=== PATIENT | male | born 1980 | race Caucasian/White ===

== ENCOUNTER 2020-03-17 09:02 | Emergency (ER) | payer OTHER, SELFPAY ==
[2020-03-17 09:02] VITALS: BP 152/102; PULSE 98; RESP 16; TEMP 36.7; O2SAT 97; BMI 25.8
--- NOTE | 2020-03-17 09:20 | RAD_ITS ---
STUDY: X-RAY - RIGHT KNEE REASON FOR EXAM: Male, 39 years old. KNEE PAIN AND LROM, UNABLE TO BEAR WEIGHT S/P FALL LAST NIGHT -- HX OF 2 SURGERIES- ACL REPAIR AND MCL REPAIR TECHNIQUE: 4 view(s) of the knee. COMPARISON: None. FINDINGS: Normal visualized distal femur. Normal visualized proximal tibia and fibula. Normal proximal tibiofibular articulation. There is evidence of prior anterior cruciate ligament repair. Normal medial femorotibial compartment. Normal lateral femorotibial compartment. Normal patellofemoral articulation. The soft tissue structures are unremarkable. RAD/Knee 4 or More Views IMPRESSION: Evidence of prior anterior cruciate ligament repair. Electronically Signed: Naseem Morocho, at 9:39 EDT , Service support ,
--- NOTE | 2020-03-17 09:29 | ED.VISSUMM ---
- ER Visit Summary Date of Service: 03/17/20 Chief Complaint: [Right knee injury] History of Present Illness: The patient is a 39 M [presents the emergency department with complaint of injury to the right knee that occurred yesterday while at work. Patient states that he tripped over a pallet and landed on the lateral aspect of his knee but he has a lot more pain diffusely about the knee and especially to the medial aspect this morning. This morning patient unable to bear weight secondary to pain. Patient has had prior surgeries x2 on that knee for an ACL repair. Patient does not want to file this under workman's comp. He denies any other injuries.] Physical Examination: [HEENT-PERRLA, EOMI. Cranial nerves II through XII grossly intact. TMs clear. Mucous membranes moist. No adenopathy. Cardiovascular-regular rate and rhythm without murmur or ectopy Lungs-clear to auscultation, chest wall stable without crepitus or subcu emphysema Abdomen-normoactive bowel sounds, soft, nontender, no rebound or rigidity, no peritoneal signs. Extremities-intact ?4, normal range of motion, normal pulses. Right knee-patient has no evidence of joint effusion. There is no ecchymosis or bruising. There is mild soft tissue swelling to the medial lateral aspect of the knee. He has limited range of motion flexion extension secondary to pain. He does not tolerate ligamentous exam. He is neurovascular intact distally.] Test Results: [X-rays of the right knee were obtained which showed evidence of prior ACL repair however no fractures or dislocations noted.] Emergency Department Course and Treatment: [She was given a knee immobilizer. Patient states he already has crutches and does not want them.] Treatment Plan: [She will be given a referral to orthopedics as well as a prescription for Naprosyn and a few [place] for severe pain. Patient instructed to ice and elevate the extremity. Patient understands he may require further imaging such as possibly MRI to evaluate further if symptoms do not improve.] Disposition: [Discharged home in stable condition] Impression: [Right knee contusion/sprain-possible internal derangement] This note was generated with [employer] dictation software. It may contain incorrect words, spelling, and punctuation that were not noted in review of the chart prior to signing
--- NOTE | 2020-03-17 09:43 | ED.DEP ---
ED Disposition - Plan for ED Patient: Instructions: ED Meniscal Injury Knee Poss, ED Sprain Knee Prescriptions: Naproxen [Naprosyn] 500 mg PO BID PRN #20 tab Prescription Printed Hydrocodone Bitart/Apap 5-325 [[place] 5MG-325MG] 1 tab PO Q4H PRN PRN 2 Days #10 tab PRN Reason: Pain Prescription Printed Referrals: Camden Farley MD [STAFF PHYSICIAN] - 3-5 Days
== END 2020-03-17 10:17 | disposition home or self-care (01) ==
PROVIDERS: Emergency Provider Emergency Medicine
DX: S83.91XA Sprain of unspecified site of right knee, initial encounter (principal); S80.01XA Contusion of right knee, initial encounter; W18.09XA Striking against other object with subsequent fall, initial encounter; Y93.9 Activity, unspecified; Y92.9 Unspecified place or not applicable; Y99.0 Civilian activity done for income or pay
CPT/HCPCS: 73564; 99283

== ENCOUNTER → 2020-04-07 10:46 | Outpatient (CLI) | payer OTHER, SELFPAY ==
[2020-03-17 09:02] VITALS: BMI 25.8
== END ==
PROVIDERS: Referring Provider Orthopaedic Surgery; Visit Provider Orthopaedic Surgery
DX: Z11.59 Encounter for screening for other viral diseases (principal)
CPT/HCPCS: 87635; 94799; U0003

== ENCOUNTER 2021-11-30 16:05 | Emergency (ER) | payer OTHER, SELFPAY ==
[2021-11-30 16:05] VITALS: BP 157/100; PULSE 98; RESP 16; TEMP 36.8; O2SAT 97; BMI 25.8
--- NOTE | 2021-11-30 16:28 | EX.ED.UPPERE ---
HPI History of Present Illness Chief Complaint: Upper Extremity Injury Narrative Narrative: Patient presents with injury to his right hand that he sustained approximately 3 hours ago. He is right-hand dominant. He has had previous surgeries and plate/screws inserted from fracture of his right hand from across injury in high school. 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 He now has swelling across the dorsum of his right hand. Pain is worse with movement of his fingers and when pressing down on the area that has swollen up. He denies other injuries. PFSH PFS Home Medications NK 11/30/21 [History Last Taken Unknown] Allergy/AdvReac Type Severity Reaction Status Date / Time No Known Allergies Allergy Verified 03/17/20 09:04 Surgical History H/O knee surgery Social History Smoking Status: Current every day smoker tobacco type: smokeless tobacco ROS ROS ED ROS Narrative Constitutional: No fever, no chills. HEENT: No sore throat. No neck pain. No loss of vision. No rhinorrhea. Cardiovascular: No chest pain. No palpitations. No pedal edema. Respiratory: No cough, no shortness of breath. Abdominal: No abdominal pain. No nausea. No vomiting. Genitourinary: No dysuria. No hematuria. Musculoskeletal: No myalgias. Right hand pain, back of right hand, with noted swelling. Worse with movement of his fingers now. Neurologic: No headaches. No dizziness. No lightheadedness. Skin: No rash. No change in color. Psychiatric: No depression. No anxiety. EXAM Physical Exam Narrative Exam Narrative: Afebrile. Vital signs noted. HEENT: Normocephalic. Atraumatic. PERRL, EOMI. Neck soft and supple. No point tenderness or step off. Cardiovascular: Regular rate and rhythm. No murmurs, rubs, or gallops appreciated. Respiratory: No tachypnea. Lungs clear to auscultation bilaterally. Gastrointestinal: Abdomen soft, nontender, with normoactive bowel sounds. No rebound or guarding. Neurological: Awake. Alert. Nonfocal, nonlateralizing. Skin: No rash. Normal color. No pallor. Musculoskeletal: No pedal edema. Positive swelling noted on dorsum of right hand along the second and third metacarpals/midshaft area. Neurovascularly intact distally with full range of motion of fingers and good capillary refill. Abduction and abduction of fingers intact. Able to oppose thumb. Full range of motion of wrist without pain. Palpable radial pulse. Const Vital Signs: 11/30/21 16:05 Temperature 98.3 F Temperature Source Temporal Pulse Rate 98 Respiratory Rate 16 Blood Pressure 157/100 H Blood Pressure Mean 119 Pulse Ox 97 Oxygen Delivery Method Room Air MDM MDM MDM Narrative Medical decision making narrative: Patient declined analgesics here. He had already been given an ice pack. X-rays were obtained of the right hand in 3 views. My interpretation of the x-ray shows postsurgical changes, but no acute fracture. Radiologist confirms this. He was referred to the [facility]. He will be given off work today, the day of his injury, but states he is already off work for the day. He was told to follow-up with the [facility] in 3 to 5 days. He will continue ice and elevation at home along with [id number] analgesics as needed. I feel he can be discharged safely home with follow-up. Return instructions were reviewed. He was given a note to return to work with limited use of his right hand and right arm for the next week or until cleared by the [facility]. Disposition is discharged home in stable condition. Discharge Plan Triage Chief Complaint: Upper Extremity Injury ED Provider: Nasim Gill Dx/Rx/DC Orders Clinical Impression: Contusion of right hand Instructions: ED Hand Contusion Prescriptions: No Action NK RF: 0 Stand Alone Forms: Work Status Form Primary Care Provider: Care Physician,No Primary Referrals: Care Physician,No Primary [Primary Care Provider] - [facility] [NON-STAFF] - 3-5 Days Disposition Disposition: Home, Self Care
--- NOTE | 2021-11-30 16:32 | RAD_ITS ---
History: Pain, trauma related Right hand 3 views: Findings: Surgical plates in place along the fourth and fifth metacarpal shafts. No acute fracture or subluxation. Joint spaces and soft tissues are normal. IMPRESSION: No acute bone or joint abnormality. at 1649 Reported and signed by: Tobias La MD Electronically Signed: Tobias La MD at 16:48 EDT , RAD/Hand Min 3 Views
== END 2021-11-30 17:29 | disposition home or self-care (01) ==
PROVIDERS: Emergency Provider Emergency Medicine; Visit Provider Emergency Medicine
DX: S60.221A Contusion of right hand, initial encounter (principal); F17.220 Nicotine dependence, chewing tobacco, uncomplicated; X58.XXXA Exposure to other specified factors, initial encounter
CPT/HCPCS: 73130; 99282

== ENCOUNTER → 2023-02-20 | Outpatient (CLI) | payer OTHER, SELFPAY | END | disposition home or self-care (01) | LOC: MFPLAB 10:17 | PROVIDERS: PCP Family Medicine; Visit Provider Family Medicine | DX: M54.9 Dorsalgia, unspecified (principal) | CPT/HCPCS: 36415; 85379 ==

== ENCOUNTER 2023-07-12 22:40 | Observation (INO) | payer OTHER, SELFPAY ==
[2023-07-12 22:41] VITALS: BP 138/87; PULSE 105; RESP 16; TEMP 36.6; O2SAT 97
[2023-07-12 22:57] VITALS: BMI 24.0
--- NOTE | 2023-07-12 23:06 | EX.ED.DYSGE1 ---
HPI History of Present Illness Chief Complaint: Seizure Informant: patient Onset/Context/Timing Onset: Hours (1) Context: Sudden Onset Timing: Intermittent and Lasts (1 to 1-1/2 minutes) Quality: [place] Location: Generalized Worsened by: Alcohol withdrawal Relieved by: Nothing Narrative Narrative: Patient presents with a seizure that occurred today. states that occurred approximately 1 hour prior to arrival. states that patient had a generalized [place] mall seizure. states the patient normally drinks alcohol daily but has not had any alcohol since last night. Patient admits to biting his tongue. Patient denies any incontinence of urine or stool. Patient denies any headaches. Patient denies any chest pain or shortness of breath. Patient denies any fevers or chills. PFSH PFSH Medical History no medical history no medical history Home Medications NK 07/12/23 [History Last Taken Unknown] Allergy/AdvReac Type Severity Reaction Status Date / Time No Known Allergies Allergy Verified 07/12/23 22:44 Surgical History H/O knee surgery Social History Smoking Status: Current every day smoker tobacco type: smokeless tobacco alcohol intake: current alcohol intake frequency: 3 or more drinks per day ROS ROS ED Constitutional Constitutional ED: Denies chills or fever(s) Eyes Eyes: Denies blurry vision or change in vision ENT ENT ED: Denies rhinorrhea or sore throat Cardiovascular Cardiovascular: Denies chest pain or palpitations Respiratory/Chest Respiratory/Chest: Denies cough or dyspnea Gastrointestinal Gastrointestinal: Denies nausea or vomiting Genitourinary Genitourinary ED: Denies dysuria or hematuria Musculoskeletal Musculoskeletal: Denies back pain or neck pain Integumentary Denies abscess or rash Neurologic Neurologic: Denies headache(s) or weakness Allergic/Immunologic Allergic/Immunologic ED: Denies mouth swelling or urticaria EXAM Physical Exam Const Vital Signs: 07/12/23 22:41 07/13/23 01:19 Temperature 98 F Temperature Source Temporal Pulse Rate 105 H 61 Respiratory Rate 16 18 Blood Pressure 138/87 H Blood Pressure Mean 104 Pulse Ox 97 98 Oxygen Delivery Method Room Air Room Air Positive well nourished and well developed General Appearance ED: well developed and NAD HEENT Reports moist mucous membranes Neck supple and no JVD Resp normal respiratory effort and clear to auscultation bilaterally Cardio regular rhythm Rate: tachycardic GI non-tender and non-distended Palpation: soft Extremity normal to inspection General Extremety ED: Negative for edema or tenderness General Extremity: Negative for edema Neuro oriented x3, CN's II-XII intact bilaterally and no sensory deficits noted Sensorium / Orientation: alert Motor Exam: strength 5/5 throughout Psych mental status grossly normal Skin no wounds and skin turgor normal MDM MDM MDM Narrative Medical decision making narrative: Differential diagnosis includes alcohol withdrawal seizure, electrolyte abnormality, intracranial bleeding, cardiac dysrhythmia, and cardiac ischemia. CT scan of the brain will be obtained to assess for intracranial bleeding. EKG will be obtained to assess for cardiac dysrhythmia and cardiac ischemia. CBC will be obtained to assess for leukocytosis and anemia. Comprehensive metabolic profile will be obtained to assess for hepatic function, renal function, and electrolyte abnormality. Lipase will be obtained to assess for pancreatitis. High-sensitivity troponin will be obtained to assess for cardiac ischemia. Total CPK will be obtained to assess for rhabdomyolysis. Lab Data Attestation: I reviewed the patient's lab results. Lab results narrative: CBC was reviewed and was essentially within normal limits. PT with INR and PTT were reviewed. Pro time was 15.1 and INR is 1.2. PTT was normal at 27.3. Comprehensive metabolic profile was reviewed. Sodium was 130 and potassium was 3.0. Chloride was 94. CO2 was 19 and anion gap is slightly elevated at 17. Total bilirubin was slightly elevated at 1.7, AST was slightly elevated at 184 and ALT was 158. Alkaline phosphatase was normal at 100. High-sensitivity troponin was reviewed and was normal at 4. 2-hour repeat high-sensitivity troponin was reviewed and was normal at 6. Lipase was reviewed and was normal at 36. Labs: Laboratory Results - last 24 hr 07/12/23 07/12/23 07/13/23 23:11 23:57 02:27 WBC 5.5 RBC 4.49 L Hgb 14.9 Hct 43.3 MCV 96.4 H MCH 33.2 H MCHC 34.4 RDW Std Deviation 41.2 RDW Coeff of Howard 11.8 Plt Count 123 L MPV 9.6 Immature Gran % (Auto) 1.100 H Neut % (Auto) 69.8 Lymph % (Auto) 14.4 L [place] % (Auto) 11.8 H Eos % (Auto) 0.9 Baso % (Auto) 2.0 H Absolute Neuts (auto) 3.8 Absolute Lymphs (auto) 0.79 L Nucleated RBC % 0 PT 15.1 H INR 1.2 APTT 27.3 Sodium 130 L Potassium 3.0 L Chloride 94 L Carbon Dioxide 19.0 L Anion Gap 17 H BUN 8 Creatinine 1.14 Estim Creat Clear Calc 81.67 Est GFR (MDRD) Af Amer 90 Est GFR (MDRD) Non-Af 75 BUN/Creatinine Ratio 7.0 L Glucose 205 H Calcium 9.8 Total Bilirubin 1.70 H AST 184 H ALT 158 H Alkaline Phosphatase 100 Troponin I High Sens 4 6 Total Protein 8.4 H Albumin 4.0 Globulin 4.4 H Albumin/Globulin Ratio 0.9 Lipase 36 Radiography Diagnostic Testing: Clinical Impression(s) from Imaging Studies Brain CT 07/12/23 23:46 IMPRESSION: Mild microangiopathic disease, otherwise no acute intracranial process. Sequela of chronic sinusitis as described. Electronically Signed: Nadege Zavaleta MD at 0:38 EST , CT scan of the brain was obtained. There is no acute intracranial abnormality. This was interpreted by the radiologist and was also independently reviewed by myself. EKG Initial EKG: Attestation: I personally reviewed and interpreted this EKG as follows: Interpretation: Sinus Rhythm and No Acute Injury Pattern Comments: EKG was obtained. On my independent interpretation, it shows normal sinus rhythm with a rate of 61. MO interval was normal at 166 ms. QRS interval was normal at 88 ms. QTc interval was slightly prolonged at 485 ms. Raccoon was normal at 9. There are no acute ST or T wave changes noted. Prior EKG tracings: not available for review Prior: No Prior Treatment and Re-Evaluation :: Seizure precautions were maintained. Patient was given IV fluids. Patient was given a dose of phenobarbital here. Patient was given a dose of potassium. Patient was also given Tylenol for his headache. Patient was feeling somewhat better on reevaluation. Patient requested to be admitted for alcohol detox. Case was discussed with the hospitalist. He will admit the patient to his service. Urine tox screen and serum alcohol level were added on. Patient and family understood and were agreeable with the plan. All questions were answered. Discharge Plan Triage Chief Complaint: Seizure ED Provider: Ashkan Chery Dx/Rx/DC Orders Clinical Impression: Desire for detoxification, Alcohol withdrawal seizure Prescriptions: No Action NK Primary Care Provider: Stan Reynoso Referrals: Stan Reynoso MD [Primary Care Provider] - Disposition Disposition: Acute Care Hospital [facility]
--- NOTE | 2023-07-12 23:46 | CT_ITS ---
STUDY: CT BRAIN WITHOUT CONTRAST REASON FOR EXAM: Male, 42 years old. Seizure RADIATION DOSAGE (If Supplied By Facility): CTDIvol = ( 44.99 ) mGy, DLP = ( 779.24 ) mGycm TECHNIQUE: Transaxial CT imaging of the brain was performed without administration of intravenous contrast material. Individualized dose optimization techniques were used for this CT. COMPARISON: No relevant priors. FINDINGS: Normal soft tissue structures. Normal calvarium. There is mild cerebral atrophy with widening of the extra-axial spaces and ventricular dilatation. There are areas of decreased attenuation within the white matter tracts of the supratentorial brain, consistent with mild microvascular disease changes. Normal basal ganglia and thalami. Normal brainstem. Normal cerebellum. There is no intracranial hemorrhage. There are no findings of an acute ischemic infarction. Mucosal thickening involving the left frontal sinus, bilateral maxillary, ethmoids and sphenoid sinus consistent with chronic pansinusitis. Bilateral mastoid air cells are clear. CT/Brain/Head without Contrast IMPRESSION: Mild microangiopathic disease, otherwise no acute intracranial process. Sequela of chronic sinusitis as described. Electronically Signed: Nadege Zavaleta MD at 0:38 EST ,
--- NOTE | 2023-07-12 23:47 | EKG12_ITS ---
Test Reason : DYSRHYTHMIA Blood Pressure : / mmHG Vent. Rate : 061 BPM Atrial Rate : 061 BPM P-R Int : 166 ms QRS Dur : 088 ms QT Int : 482 ms P-R-T Axes : 039 009 047 degrees QTc Int : 485 ms Normal sinus rhythm Prolonged QT Abnormal ECG Confirmed by FABBY ZAZUETA, MARLENA ([id number]), medical transcription editor LORENZO JARRELL ([id number]) on 07/23/2023 10:01:05 AM Referred By: MARY Confirmed By:MARLENA SEQUEIRA MD
[2023-07-12] MEDS: 0.9% Normal Saline (1000mL) 1,000 ML 1000 ML IV (23:55)
[2023-07-13] VITALS (15 sets, daily range): BP systolic 106–151; BP diastolic 82–95; PULSE 59–86; RESP 12–18; TEMP 36.5–37.2; O2SAT 94–100; BMI 24.5
[2023-07-13 00:04] LABS: Absolute Lymphocyte Count 0.79 X10^3/uL (0.83-4.51); Absolute Neutrophil Count 3.8 X10^3/uL (2.0-7.7); Basophil# 0.11 X10^3/uL; Eosinophil# 0.05 X10^3/uL; Eosinophils% 0.9 % (0-5); Hematocrit 43.3 % (40-54); Hemoglobin 14.9 g/dL (13.0-16.5); Lymphocyte # 0.79 X10^3/ul (0.83-4.51); Lymphocyte % 14.4 % (19-41); Mean Corp Hgb Conc 34.4 g/dL (32-36); Mean Corpuscular Hgb 33.2 pg (27.0-32.0); Mean Corpuscular Volume 96.4 fL (80-94); Mean Platelet Vol. 9.6 fl (6.2-12.0); Monocyte# 0.65 X10^3/uL; Monocyte% 11.8 % (0-10); NRBC Flagged by Analyzer 0 % (0-5); Neutrophil # 3.83 X10^3/uL (2.7-7.7); Neutrophil % 69.8 % (47-70); Platelet Count 123 K/mm3 (150-450); RBC Distribution Width CV 11.8 % (11.6-14.6); RBC Distribution Width SD 41.2 fl (35.1-43.9); Red Blood Count 4.49 M/mm3 (4.6-6.2); White Blood Count 5.5 K/mm3 (4.4-11.0)
[2023-07-13 00:13] LABS: International Normalized Ratio 1.2; Partial Thromboplast Time 27.3 Seconds (24.1-36.2); Prothrombin Time (Protime)PT. 15.1 SECONDS (11.7-14.9)
[2023-07-13 00:36] LABS: ALB/GLOB Ratio 0.9 RATIO (0.9-2.4); AST(SGOT) 184 U/L (15-37); Alanine Aminotransfer ALT/SGPT 158 U/L (16-61); Alkaline Phosphatase 100 U/L (45-117); Anion Gap 17 (5-15); BUN 8 mg/dL (7-18); Calcium,Total 9.8 mg/dL (8.5-10.1); Chloride 94 mmol/L (98-107); Creatinine, Serum 1.14 mg/dL (0.70-1.30); EST Glomerular Filtration Rate 75 mL/min (>60); Est Glom Filt Rate - Afr Amer 90 mL/min (>60); Estimated Creatinine Clearance 81.67 ml/min; Globulin 4.4 g/dL (2.2-4.2); Glucose 205 mg/dL (74-106); Lipase 36 U/L (13-75); Protein, Total 8.4 g/dL (6.4-8.2); Sodium Level 130 mmol/L (136-145); Troponin-I HS (w/2H Reflex) 4 pg/mL (3.0-78.0)
[2023-07-13] MEDS: Acetaminophen 500 MG Tablet 1000 MG PO (01:48)
[2023-07-13 02:16] LABS: Reflex Troponin-HS? (from REC) Y
[2023-07-13] MEDS: Potassium Chloride Oral Tablet 20 MEQ 40 MEQ PO ×3 (02:18→12:12)
[2023-07-13] MEDS: Phenobarbital 32.4 MG Tablet PO (02:43)
[2023-07-13 02:50] LABS: Troponin-I HS 6 pg/mL (3.0-78.0)
--- NOTE | 2023-07-13 03:02 | PCM.HP.STD ---
HPI - General General Date of Admission: 07/13/23 Date of Service: 07/13/23 Chief Complaint: Alcohol withdrawal seizure HPI Narrative JEANNETTE MCKEON, is a 42 M with a past medical history of smokeless tobacco abuse, history of knee surgery and chronic alcohol abuse who presents to [facility] ER complaining of grand mal seizure. Mr. Mckeon reports symptoms began approximately 1 hour prior to admission with a sudden onset of seizure activity that lasted 60 to 90 seconds. His explained to the ER staff that he normally drinks alcohol daily but has not had any since last night. He admits to tongue lacerations but denies incontinence of bowel or bladder. He denies associated headache, fever, chills, nausea, vomiting, chest pain or shortness of breath - but he does admit to depression with anxiety and he does have a generalized tremor with domingo cheeks due to chronically dilated capillaries. He admits to chronically drinking 6-8 beers per day before he loses count and he denies a history of alcohol withdrawal seizures or DTs. 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 In the ER he was diagnosed with acute alcohol withdrawal causing grand mal seizure in the setting of chronic alcohol abuse complicated by laboratory evidence of hyperbilirubinemia with transaminitis due to alcoholic hepatitis with a total bilirubin of 1.7 mg/dL present on admission with an ALT of 158 and an AST of 184 plus hypokalemia with a potassium of 3 mmol/L present on admission and he was then admitted to the ICU under observation status for ongoing care for a stay that is expected to be less than 48 hours. [facility] Medical History no medical history Home Medications NK 07/12/23 [History Last Taken Unknown] Allergy/AdvReac Type Severity Reaction Status Date / Time No Known Allergies Allergy Verified 07/12/23 22:44 Surgical History H/O knee surgery Social History Smoking Status: Current every day smoker tobacco type: smokeless tobacco alcohol intake: current alcohol intake frequency: 3 or more drinks per day ROS ROS Narrative Review of systems: Constitutional: Patient denies fever or chills Eyes: Patient denies visual changes ENT: Patient denies runny nose or sore throat Cardiovascular: Patient denies chest pain or palpitations Respiratory: Patient denies cough or shortness of breath Gastrointestinal: Patient denies nausea or vomiting Genitourinary: Patient denies dysuria or hematuria Musculoskeletal: Patient denies back pain or neck pain Integumentary: Patient denies abscess or rash Neurologic: Patient has a generalized tremor but he denies headache or focal neurologic deficits Hematologic: Denies easy bleeding or easy bruising Allergic: Patient denies mouth swelling or urticaria 14 point review of systems otherwise negative except for positives noted above in HPI. Vital Signs Vital Signs Vital Signs: 07/12/23 22:41 07/13/23 01:19 Temperature 98 F Temperature Source Temporal Pulse Rate 105 H 61 Respiratory Rate 16 18 Blood Pressure 138/87 H Blood Pressure Mean 104 Pulse Ox 97 98 Oxygen Delivery Method Room Air Room Air Weight Weight: 158 lb 8.198 oz Body Mass Index (BMI) 24.0 Physical Exam Const alert, oriented x3 and average body habitus General Appearance: cooperative HEENT normocephalic, head/scalp atraumatic, hearing grossly normal bilaterally and moist oral mucous membranes HEENT Narrative: Patient is noted to have tongue lacerations. Eyes PERRL and EOMs intact bilaterally Eyes Narrative: Conjunctive a are injected. Neck no lymphadenopathy, supple, no JVD and no carotid bruits Resp normal respiratory effort, no retractions, no use of accessory muscles and clear to auscultation bilaterally Cardio regular rate and regular rhythm GI normal to inspection, nondistended, normoactive bowel sounds, soft to palpation, non-tender and non-distended Extremity normal to inspection, full ROM and no clubbing, cyanosis or edema Skin Skin Narrative: Patient has no evidence of rash at this time. Neuro oriented x3, CN's II-XII intact bilaterally, moves all extremities and no focal motor deficits Neuro Narrative: Patient has a generalized tremor. Sensorium / Orientation: awake, alert, oriented to person, oriented to place and oriented to time Speech: speech normal Motor Exam: strength 5/5 throughout Psych Mood & Affect: depressed and anxious Results Medical Records Data Attestation: I reviewed the patient's medical records Lab / Micro Data Attestation: I reviewed the patient's lab results. 07/13/23 04:40 07/13/23 04:40 Labs: Laboratory Results - last 24 hr 07/12/23 23:11: Sodium 130 L, Potassium 3.0 L, Chloride 94 L, Carbon Dioxide 19.0 L, Anion Gap 17 H, BUN 8, Creatinine 1.14, Estim Creat Clear Calc 81.67, Est GFR (MDRD) Af Amer 90, Est GFR (MDRD) Non-Af 75, BUN/Creatinine Ratio 7.0 L, Glucose 205 H, Calcium 9.8, Total Bilirubin 1.70 H, AST 184 H, ALT 158 H, Alkaline Phosphatase 100, Troponin I High Sens 4, Total Protein 8.4 H, Albumin 4.0, Globulin 4.4 H, Albumin/Globulin Ratio 0.9, Lipase 36 07/12/23 23:57: WBC 5.5, RBC 4.49 L, Hgb 14.9, Hct 43.3, MCV 96.4 H, MCH 33.2 H, MCHC 34.4, RDW Std Deviation 41.2, RDW Coeff of Howard 11.8, Plt Count 123 L, MPV 9.6, Immature Gran % (Auto) 1.100 H, Neut % (Auto) 69.8, Lymph % (Auto) 14.4 L, Day % (Auto) 11.8 H, Eos % (Auto) 0.9, Baso % (Auto) 2.0 H, Absolute Neuts (auto) 3.8, Absolute Lymphs (auto) 0.79 L, Nucleated RBC % 0, PT 15.1 H, INR 1.2, APTT 27.3 07/13/23 02:27: Troponin I High Sens [address] 07/12/23 23:46 IMPRESSION: Mild microangiopathic disease, otherwise no acute intracranial process. Sequela of chronic sinusitis as described. Electronically Signed: Nadege Zavaleta MD at 0:38 EST , Assessment & Plan Assessment/Plan (1) Alcohol withdrawal seizure: QUALIFIERS: Complication of substance-induced condition: uncomplicated Qualified Code(s): F10.930 - Alcohol use, unspecified with withdrawal, uncomplicated; R56.9 - Unspecified convulsions (2) Alcoholic hepatitis without ascites: (3) Chronic alcohol abuse: (4) Hypokalemia: PLAN: Plan 1. Alcohol withdrawal seizure in the setting of chronic alcohol abuse - Admit to ICU under observation status under seizure precautions. Continue phenobarbital taper begun in the ER. Patient's moderate thrombocytopenia of 100 present on admission is likely due to marrow suppression related to alcohol. Alcohol cessation was very strongly encouraged. 2. Hyperbilirubinemia with total bilirubin of 1.7 mg/dL with elevated AST of 184 and elevated ALT of 158 present on admission due to alcoholic hepatitis complicating #1 - Serial labs Daily CMP's to ensure improvement. Avoid Tylenol and other potentially hepatotoxic agents. 3. Hypokalemia of 3 mmol/L present on admission - Give supplemental potassium and recheck level in the a.m. to ensure improvement. 4. Tobacco abuse - Tobacco cessation was strongly encouraged with nicotine gum offered to control cravings at patient request. 5. DVT prophylaxis - Lovenox 40 mg subcu daily. Total time: Approximately 45 minutes Charges/Coding Visit Charges OBSV E&M: 95389 Observ/hosp same date L1
[2023-07-13 04:03] LABS: Alcohol, Blood (Medical)-Serum < 3.0 mg/dL
[2023-07-13 04:05] LABS: Amphetamine Urine VISTA NEGATIVE (<1000 ng/mL); Barbiturate Urine VISTA NEGATIVE (< 200 ng/mL); Benzodiazepine Urine VISTA NEGATIVE (< 200 ng/mL); Cocaine Urine VISTA NEGATIVE (< 300 ng/mL); Ecstacy Urine VISTA NEGATIVE (< 500 ng/mL); Methadone Urine VISTA NEGATIVE (< 300 ng/mL); PCP Urine VISTA NEGATIVE (< 25 ng/mL); THC Urine VISTA NEGATIVE (< 50 ng/mL); Vista UDS pH Range 7
[2023-07-13 04:49] LABS: Hematocrit 38.6 % (40-54); Hemoglobin 13.4 g/dL (13.0-16.5); Mean Corp Hgb Conc 34.7 g/dL (32-36); Mean Corpuscular Volume 95.1 fL (80-94); Mean Platelet Vol. 9.3 fl (6.2-12.0); POSITIVE DIFFERENTIAL YES; POSITIVE MORPHOLOGY YES; Platelet Count 100 K/mm3 (150-450); RBC Distribution Width CV 11.7 % (11.6-14.6); RBC Distribution Width SD 41.2 fl (35.1-43.9); Red Blood Count 4.06 M/mm3 (4.6-6.2); White Blood Count 5.3 K/mm3 (4.4-11.0)
[2023-07-13] MEDS: 0.9% Saline Lock 10 ML Syringe IV (05:01)
[2023-07-13] MEDS: KCL 20MEQ in 0.9% NS 20 MEQ/1,000 ML IV.SOLN. 150 MEQ IV (05:01)
[2023-07-13] MEDS: Phenobarbital 32.4 MG Tablet 97.2 MG PO ×5 (05:01→19:58)
[2023-07-13] MEDS: Ondansetron 4 MG/2 ML Vial IV (05:01)
[2023-07-13 05:13] LABS: ALB/GLOB Ratio 0.8 RATIO (0.9-2.4); AST(SGOT) 146 U/L (15-37); Alanine Aminotransfer ALT/SGPT 137 U/L (16-61); Albumin, Serum 3.5 g/dL (3.2-5.0); Alkaline Phosphatase 83 U/L (45-117); Anion Gap 11 (5-15); BUN 6 mg/dL (7-18); BUN/Creat Ratio 6.9 RATIO (10-20); Calcium,Total 8.7 mg/dL (8.5-10.1); Chloride 97 mmol/L (98-107); Creatinine, Serum 0.87 mg/dL (0.70-1.30); EST Glomerular Filtration Rate 102 mL/min (>60); Est Glom Filt Rate - Afr Amer 123 mL/min (>60); Estimated Creatinine Clearance 103.41 ml/min; Globulin 4.3 g/dL (2.2-4.2); Glucose 123 mg/dL (74-106); Magnesium 1.9 mg/dL (1.6-2.6); Phosphorus 2.1 mg/dL (2.5-4.9); Potassium 3.2 mmol/L (3.5-5.1); Protein, Total 7.8 g/dL (6.4-8.2); Sodium Level 133 mmol/L (136-145); Thyroid Stim Hormone (TSH) 1.19 uIU/mL (0.358-3.74)
[2023-07-13 05:14] LABS: Differential Indicated MANUAL DIFF
[2023-07-13 05:17] LABS: Basophil 1 % (0-1); Eosinophil 1 % (0-5); Lymphocyte 10 % (19-41); Monocyte 6 % (0-10); Neutrophil-Segmented 82 % (47-70); Total Cells Counted 100 (MANUAL DIFF)
[2023-07-13 05:22] LABS: Absolute Lymphocyte Count 0.53 X10^3/uL (0.83-4.51); Absolute Neutrophil Count 4.3 X10^3/uL (2.0-7.7); Lymphocyte # 0.53 X10^3/ul (0.83-4.51); Neutrophil # 4.33 X10^3/uL (2.7-7.7)
[2023-07-13 05:29] LABS: Differential Comment SCANNED; Platelet Estimate ADEQUATE (ADEQ); Red Cell Morphology NORM C+C NORMAL (NORM C&C)
[2023-07-13] MEDS: Folic Acid 1 MG Tablet PO (08:05)
[2023-07-13] MEDS: Thiamine Hydrochloride 100 MG Tablet PO (08:05)
[2023-07-13] MEDS: Gabapentin 300 MG Capsule PO (08:17)
--- NOTE | 2023-07-13 08:54 | PCM.HOSP.N ---
Hospitalist Note Patient was seen and examined, he is alert and appropriate, he states he is nervous. Patient has never gone through alcohol detox before, he had contacted [facility] as an outpatient. Patient appears appropriate for transfer to [place] [id number], I do not feel he needs IV access at this time, his potassium slightly low will give him oral potassium. Patient will be seen by addiction director social service tomorrow.
[2023-07-13] MEDS: hydrOXYzine PAM 25 MG Capsule 50 MG PO (12:12)
--- NOTE | 2023-07-13 13:52 | NURSING ---
pt read and signed ramp contract. pt called to inform of ramp admit and not able to have visitors or phone calls while on program
[2023-07-13] MEDS: Ibuprofen 400 MG Tablet PO (20:09)
[2023-07-14] MEDS: Phenobarbital 32.4 MG Tablet 97.2 MG PO ×3 (00:28→07:22)
[2023-07-14 00:30] VITALS: BP 132/84; PULSE 68; RESP 16; TEMP 36.6; O2SAT 97
[2023-07-14 04:33] VITALS: BP 126/86; PULSE 62; RESP 16; TEMP 36.9; O2SAT 95
[2023-07-14 06:00] VITALS: BMI 24.4
[2023-07-14] MEDS: Folic Acid 1 MG Tablet PO (07:26)
[2023-07-14] MEDS: Thiamine Hydrochloride 100 MG Tablet PO (07:26)
[2023-07-14 08:36] VITALS: BP 119/80; PULSE 71; RESP 16; TEMP 36.6; O2SAT 99
--- NOTE | 2023-07-14 08:45 | PCM.PN.HOSP ---
Objective Data Objective Data Vital Signs: Vital Signs Temp Pulse Resp BP Pulse Ox O2 Del Method 36.6 C 71 16 119/80 99 Room Air 07/14/23 08:36 07/14/23 08:36 07/14/23 08:36 07/14/23 08:36 07/14/23 08:36 07/14/23 08:36 Oxygen Delivery Method Room Air Weight: 70.76 kg Body Mass Index (BMI) 24.4 Intake & Output: Intake and Output for Last 24 Hours 07/12/23 07/13/23 07/14/23 23:59 23:59 23:59 Intake Total 2595 / 2595 Output Total 1500 / 1500 Balance 1095 / 1095 Lab / Micro Data 07/13/23 04:40 07/13/23 04:40 Assessment & Plan Assessment/Plan (1) Alcohol withdrawal seizure: QUALIFIERS: Complication of substance-induced condition: uncomplicated Qualified Code(s): F10.930 - Alcohol use, unspecified with withdrawal, uncomplicated; R56.9 - Unspecified convulsions PLAN: Suspected alcohol withdrawal seizure. Through primary seizure disorder cannot be ruled out. Prior to arrival. Had not drank the day prior. No further events. No driving/operating heavy machinery for 6 months. May resume if seizure free and no longer abusing alcohol. Or may follow up with neurology to see if driving restrictions can be released sooner. Refer to case: [facility] Head CT showed no acute findings, though, mild microangiopathic disease. (2) Alcoholic hepatitis without ascites: PLAN: AST and ALT trending down. No baseline. Monitor. (3) Chronic alcohol abuse: PLAN: Thiamine and folate Phenobarbital taper. (4) Hypokalemia: PLAN: Replace Magnesium 1.9. PLAN: Plan Tobacco abuse - Tobacco cessation was strongly encouraged with nicotine gum offered to control cravings at patient request. DVT prophylaxis - Lovenox 40 mg subcu daily. Before had a chance to see the patient today, he left AGAINST MEDICAL ADVICE. I did not have the opportunity to speak with him directly nor ask many questions. He left even with the IV and the nurses had to track him down to get the IV out. Likely the patient is going to resume drinking again. In either case patient should not drive due to his alcohol consumption but also because of the risk withdrawal seizures whether or not that is primary alcohol withdrawal seizure or not.
--- NOTE | 2023-07-14 09:38 | NURSING ---
pt broke into totes and got dressed. pt left floor without signing ama papers. nursing attempting to get him to remove sl
--- NOTE | 2023-07-14 09:52 | NURSING ---
Nursing found pt and brought back to floor, iv removed and ama papers signed.
--- NOTE | 2023-07-14 10:00 | NURSING ---
Walked down to main desk to make sure patient was waiting for a ride. Noted he was walking outside. Noticed his here in the building and informed her where he was. Informed her that if he decides he wants help, he will need to come to ED. He is not able to come back straight up to the floor.
--- NOTE | 2023-07-14 10:14 | DCINST_ITS ---
Discharge Instructions Activity Discharge Activity: May Not Drive (Patient was to be seizure-free for 6 months or released to drive by neurologist assuming he is no longer drinking alcohol.) Follow Up Care Test Results: Test results from this visit will be discussed in further detail at your follow- up appointment, if applicable. Discharge Plan Admission Admit Date/Time: 07/13/23 03:22 Primary Reason for Your Visit: Alcohol withdrawal seizure Attending Provider: Ashkan Kerr Primary Care Provider: Stan Reynoso Consulting Providers: Bob Brewer; Jesus Odonnell Discharge Orders/Prescriptions Prescriptions: No Action NK Referrals / Follow Up: Stan Reynoso MD [Primary Care Provider] - Disposition Disposition (needs filled in before D/C Order can be placed): Against Medical Advice
--- NOTE | 2023-07-14 10:18 | PHA.DC.MR.R ---
Pharmacy [place] Med Reconciliation Pharmacy Service has performed discharge medication reconciliation for this patient. The patient's discharge medication list was reviewed for discrepancies and discrepancies were resolved. Medications at Discharge Home Medications NK 07/12/23
[2023-07-15 09:50] LABS: Pathologist Review Reviewed
== END 2023-07-14 09:45 | disposition left against medical advice (07) ==
LOC: ED 07-13 03:11 → ICU 07-13 06:57 → MS3 07-13 13:08
PROVIDERS: Admitting Provider Internal Medicine; Emergency Provider Emergency Medicine; PCP Family Medicine
DX: F10.288 Alcohol dependence with other alcohol-induced disorder (principal); G40.89 Other seizures; R25.1 Tremor, unspecified; S01.512A Laceration without foreign body of oral cavity, initial encounter; E87.6 Hypokalemia; K70.10 Alcoholic hepatitis without ascites; F17.290 Nicotine dependence, other tobacco product, uncomplicated; X58.XXXA Exposure to other specified factors, initial encounter
CPT/HCPCS: 70450; 80053; 80307; 82077; 83690; 83735; 84100; 84443; 84484; 85025; 85610; 85730; 93005; 96361; 96365; 96366; 96375; 99221; 99285; 99406; J7030; A4216; G0378; J2405

== ENCOUNTER 2023-07-14 14:18 | Emergency (ER) | payer OTHER, SELFPAY ==
[2023-07-14 14:20] VITALS: BP 156/101; PULSE 106; RESP 20; TEMP 36.3; O2SAT 100; BMI 24.7
--- NOTE | 2023-07-14 14:58 | EX.ED.SAOD ---
HPI History of Present Illness Chief Complaint: Substance Abuse Narrative Narrative: 42-year-old male presents with his because he wants to be readmitted to detox but in a different place. Of note, he was seen in the emergency department yesterday and was admitted. He had an alcohol withdrawal seizure. He was admitted to the ICU, and was discharged to the medical surgical floor. He signed out AGAINST MEDICAL ADVICE because he did not like some of the policies about not being able to wear his clothes or make phone calls. He presents with his because he wants to be admitted for detox at a different facility. She states that ideally she would like him detoxed at [facility] because she had a friend who detox there and was not allowed to leave. Additionally, when I discussed readmission for detox here, she states that she wants to take him to [facility]. He denies suicidal ideation or other symptoms. PFSH PFS Home Medications NK 07/12/23 [History Last Taken Unknown] Allergy/AdvReac Type Severity Reaction Status Date / Time No Known Allergies Allergy Verified 07/14/23 14:20 Surgical History H/O knee surgery Social History Smoking Status: Current every day smoker tobacco type: smokeless tobacco alcohol intake: current alcohol intake frequency: 3 or more drinks per day EXAM Physical Exam Narrative Exam Narrative: Afebrile. Vital signs noted. HEENT: Normocephalic. Atraumatic. PERRL, EOMI. Neck soft and supple. No point tenderness or step off. Cardiovascular: Regular rate and rhythm with intermittent tachycardia at 106. No murmurs, rubs, or gallops appreciated. Respiratory: No tachypnea. Lungs clear to auscultation bilaterally. Gastrointestinal: Abdomen soft, nontender, with normoactive bowel sounds. No rebound or guarding. Neurological: Awake. Alert. Nonfocal, nonlateralizing. Skin: No rash. Normal color. No pallor. No gooseflesh. Musculoskeletal: No pedal edema. Full range of motion extremities. Const Vital Signs: 07/14/23 14:20 Temperature 97.3 F L Temperature Source Temporal Pulse Rate 106 H Respiratory Rate 20 H Blood Pressure 156/101 H Blood Pressure Mean 119 Pulse Ox 100 Oxygen Delivery Method Room Air MDM MDM MDM Narrative Medical decision making narrative: I reviewed the patient's prior records. He was admitted here. I had a discussion with his regarding detox and that facilities are voluntary. When she mentioned [facility], that is a psychiatric facility, and I do not feel that he merits 72-hour admission for psychiatric reasons. I consulted social work to have a discussion with the patient and his regarding alcohol detox. Currently, I do not feel that any laboratory work is indicated here as he does not want admission here for alcohol detox. I discussed the patient with social work. hog worker stated that she spent approximately 30 minutes discussing options for the patient and reiterated that [facility] is a psychiatric facility. He does not meet any emergent psychiatric admissions currently. Social work also reported that upon return to the room after gathering information for the patient and his , they had eloped from the emergency department. Patient was in stable condition. Discharge Plan Triage Chief Complaint: Substance Abuse Other Complaint: ETOH Intox ED Provider: Nasim Gill Dx/Rx/DC Orders Clinical Impression: Desire for detoxification, Eloped from emergency department, Chronic alcohol abuse Prescriptions: No Action NK Primary Care Provider: Stan Reynoso Referrals: Stan Reynoso MD [Primary Care Provider] - Disposition Disposition: Elopement
--- NOTE | 2023-07-14 15:51 | CM.ED ---
Social Work SW introduced self and role to patient and family present in the room. Pt was in detox and left AMA. Pt returned to ED requesting detox elsewhere. Pt's reports, A friend told us it would be best for him to go to [facility] for detox because then he can't leave. SW explained [facility] is not a detox or substance abuse facility and is the state psychiatric facility. Pt's expresses the need for patient to be detained for detox. SW explained purpose of [facility] and criteria. SW is not able to admit patient to [facility], pt must be a danger to self or others psychiatrically, and have no insurance or be from the long-term. Additionally, SW explained that medical detox and substance use treatment cannot be mandated or hold people against their will, legally and due to the importance for individuals to be invested in their recovery for success. Pt's reports pt does not want detox at this facility. SW discussed and provided information of places that provide medical detox and longer term treatment. requesting additional options and SW agreed to get brochures and additional providers for their review. SW gathered 10+ fliers and brochures for treatment facilities and same day admission facilities. Returned to patient's room, patient and family left ED without further information. Oumou Zarate [employer], [employer]
--- NOTE | 2023-07-14 16:06 | ED.RN ---
PATIENT TO TALK WITH SOCIAL WORK. DENISE COLVIN WITNESSED PATIENT AND FAMILY LEAVING ROOM.
== END 2023-07-14 16:07 | disposition left against medical advice (07) ==
PROVIDERS: Emergency Provider Emergency Medicine; PCP Family Medicine; Visit Provider Emergency Medicine
DX: F10.10 Alcohol abuse, uncomplicated (principal); F17.220 Nicotine dependence, chewing tobacco, uncomplicated
CPT/HCPCS: 99282

== ENCOUNTER → 2023-09-18 | Outpatient (CLI) | payer OTHER, SELFPAY ==
--- OUTSIDE RECORDS SUMMARY | 2023-09-18 16:36 | XMS RPT_ITS | CCD ---
Author Name Unknown Address [address] [place] [address] Organization [facility] Care Team Providers Care [employer] Safety [employer] Health Specialist Name Role Phone Stan Moore MD Primary Care Provider STAN MOORE Primary Care Unavailable STAN MOORE Referring Unavailable EMERSON BARROS Attending Unavailable STAN MOORE Primary Care Unavailable STAN MOORE Referring Unavailable STAN MOORE Primary Care Unavailable STAN MOORE Primary Care Unavailable STAN MOORE Referring Unavailable STAN MOORE Primary Care Unavailable EMERSON BARROS Attending Unavailable Medications Completed/Discontinued Medications Medication Drug Class(es) Dates Sig (Normalized) Sig (Original) Ibuprofen (1 source) Nonsteroidal Anti-inflammatory Drug ibuprofen (MOTRIN ORAL) Take by mouth. 0 Active Problems Problem Classification Problem Date Documented Da te Episodic/Chronic Other liver diseases (1 source) Inflammatory liver disease, unspecified; Translations: [Hepatitis, unspecified] Onset: 08-13-2023 Chronic Other upper respiratory infections (1 source) Acute upper respiratory infection; Translations: [Acute upper respiratory infection, unspecified] Episodic Spondylosis; intervertebral disc disorders; other back problems (1 source) Acute low back pain; Translations: [Acute midline low back pain without sciatica] Episodic Results Test Name Value Interpretation Reference Range Facil ity Vital Signs Date Time Vital Sign Value Performing Clinician Faci lity 09-17-2022 10:29-0500 Body temperature 98.2 [degF] Regan Irizarry APRN.CNP Work Phone: [facility] 09-17-2022 10:29-0500 Body weight 78.2 kg Regan Irizarry APRN.CNP Work Phone: [facility] 09-17-2022 10:29-0500 Diastolic blood pressure 70 mm[Hg] Regan Irizarry COTTON DISPATCHER.FINANCIAL COMPLIANCE OFFICER Work Phone: [facility] 09-17-2022 10:29-0500 Heart rate 83 /min Regan Irizarry COTTON DISPATCHER.FINANCIAL COMPLIANCE OFFICER Work Phone: [facility] 09-17-2022 10:29-0500 Respiratory rate 18 /min Regan Irizarry COTTON DISPATCHER.FINANCIAL COMPLIANCE OFFICER Work Phone: [facility] 09-17-2022 10:29-0500 SaO2% (BldA) [Mass fraction] 98 % Regan Irizarry COTTON DISPATCHER.FINANCIAL COMPLIANCE OFFICER Work Phone: [facility] 09-17-2022 10:29-0500 Systolic blood pressure 130 mm[Hg] Regan Irizarry COTTON DISPATCHER.FINANCIAL COMPLIANCE OFFICER Work Phone: [facility] Encounters Encounter Date Encounter Type Care Provider Facility Start: 2023 End: 2023 ambulatory STAN MOORE Facility:[facility] Start: 09-02-2023 End: 09-02-2023 ambulatory STAN MOORE Facility:[facility] Start: 08-13-2023 End: 08-14-2023 ambulatory STAN MOORE Facility:[facility] Start: 10-12-2022 End: 10-13-2022 ambulatory STAN MOORE Facility:[facility] Start: 10-12-2022 Encounter for genera l adult medical examination without abnormal findings STAN MOORE [facility] Start: 09-17-2022 End: 09-17-2022 ambulatory STAN MOORE Facility:[facility] Start: 09-17-2022 End: 09-17-2022 Patient encounter procedure Regan King WINNIE.FINANCIAL COMPLIANCE OFFICER Work Phone: [facility] Plan of Treatment Date Care Activity Detail Author Start: 09-01-2022 DEPRESSION ASSESSMENT DEPRESSION ASS ESSMENT [facility] Start: 05-02-2022 Influenza vaccination INFLUENZA (#1) [facility] Start: 2015 LIPID SCREEN LIPID SCREEN [facility] Start: 1999 Urine microalbumin profile DTAP,TDAP ,TD (1 - Tdap) [facility] Start: 1998 HEPATITIS C SCREENING HEPATITIS C SC NATHAN [facility] Start: 1998 HIV SCREENING HIV SCREENING [facility] Start: 03-10-1981 COVID-19 VACCINE (#1) COVID-19 VACCI NE (#1) [facility] Start: 1980 HEPATITIS B (1 of 3 - 3-dose series) HEPATITIS B (1 of 3 - 3-dose series) [facility] Payers Date Payer Category Payer Private Health Insurance EHP AET NA EHP PLUS STAFF/NON STAFF / EHP Plus [facility] [id number] 2022-Present [address] [place] [address] PPO [id number] 2022 Unknown [id number] Social History Date Type Detail Facility [facility]: [facility] Start: 09-17-2022 Tobacco use and exposure Smoke less tobacco non-user [facility] Start: 09-17-2022 Alcohol intake Lifetime non-d wilfredo (finding) [facility] Start: 1980 [facility] Progress note 2023 Note Date & Type Note Facility 2023 Note HNO ID: [id number] Author: EMERSON BARROS PT Service: ? Author Type: Physical Therapist Type: Progress Notes Filed: 2023 09:50 Note Text: Episode Visit Count: 2 Therapist That Will Accept/Oversee The Plan Of Care: Emerson Barros PT. Start of Care Date: 09/02/23 Onset Date: 03/18/23 Patient Identified by Name and Date of : Yes REHABILITATION AND SPORTS THERAPY PHYSICAL THERAPY TREATMENT NOTE ASSESSMENT: Manjit Mckeon tolerated the session with decreased symptoms and expected muscle soreness. He demonstrated light difficulty with rowing form - cueing needed for decreased shrug and elbow position. The patient will continue to benefit from ongoing skilled physical therapy to progress toward set goals. PLAN FOR NEXT VISIT: Progress ther-ex as tolerated; shoulder extensions, prone swimmers. SUBJECTIVE: Patient reports the the mid back/L scapula has been steadily improving over the past week; states he can turn/rotate better; exercises have been good per patient. Low back has been better, bothers him continued with first time getting up - once moving he is pretty good. Pain: Pain Pain Level: 6 Pain Location: Thoracic Spine - Left, Neck - Left Description: Stabbing, Sharp Post Treatment Pain Post Treatment Pain Level: 0 Post Treatment Pain Location: Thoracic Spine - Left OBJECTIVE MEASURES WITH LEVEL OF FUNCTION: Tenderness and tissue restrictions in L Rhomboid. TREATMENT: Therapeutic Exercise: 1: Open the Book T/S Mobility: 1x12 each way. 2: Quadruped L Thread the Needle: 1x10. 3: Rhomboid Stretch: 2x30 . 4: *Doorway L Rhomboid STretch: 2x30 . 5: Thoracic Flexion Row: 1x10, 2 Plates Hoist. 6: Thoracic Rotational Row: 1x[address] e[address], 1Plate/1Round Hoist. 7: Thoracic Ext w/ ball against chair: 1x15. 8: *Horz ABD: 1x10, 9: *Rows: 1x10, GTB. Skilled Intervention: Patient was educated in proper exercise technique and purpose for exercises. Reviewed and educated patient on additions/changes for home exercise program as above (*). Skilled judgment was used in selection of appropriate interventions. Provided written instruction for home exercise program to facilitate proper performance and compliance. Correct performance of therapeutic exercises was facilitated with verbal, visual, and tactile cuing. Manual Therapy: 1: IaSTM to L Periscap area and Rhomboids: Push to tolerance. Skilled Intervention: Manual skills to improve joint mobility, ROM, and decrease pain. Utilized anatomy knowledge of the therapist, and assessment of patient's response to intervention. Billing Therapeutic Exercise Treatment Minutes: 32 Manual TherapyTreatment Minutes: 10 Skilled Treatment Time Minutes (timed and untimed codes): 42 Total Session Time (minutes): 42 Session Start Time : 09 Session Stop Time : 941 Emerson Barros PT [facility] Progress note 09-02-2023 Note Date & Type Note Facility 09-02-2023 Note HNO ID: [id number] Author: Emerson Barros PT Service: ? Author Type: Physical Therapist Type: Progress Notes Filed: 09/02/2023 1:28 PM Note Text: Episode Visit Count: 1 Therapist That Will Accept/Oversee The Plan Of Care: Emerson Papo, PT. Start of Care Date: 09/02/23 Onset Date: 03/18/23 Patient Identified by Name and Date of : Yes REHABILITATION AND SPORTS THERAPY PHYSICAL THERAPY EVALUATION PLAN OF CARE: Assessment: Manjit Mckeon presents with chief complaint of continuous L Mid-Back/Thoracic pain at the medial scapula border that can go to the R-side as well as intermittent B LBP that interferes with physical activities (Bed Mobility, Turning/Twisting, Lifting/Carrying, Occasional Rising from chair/initial walking.) .He presents with impairments in ADL's, flexibility, independence in exercise, overall function, posture, range of motion, soft tissue healing, strength, symptom management, and tissue tenderness. PROMIS? (Patient-Reported Outcomes Measurement Information System) scores were reviewed and self efficacy domain identified as a rehabilitation concern. Prognosis for therapy is Good due to: current objective clinical presentation, within-session changes, good support system/ coping skills .He will benefit from skilled therapy services to meet the goals established for this plan of care as noted below. Goals for Episode of Care: created on 09/02/23 through 10/07/23 [place] in home exercise program. Patient will decrease pain rating by 2 points to meet minimal clinical important difference for numeric pain rating scale. Patient will demonstrate increase in B scapular strength to 5/5 during manual muscle testing in order to improve function for home management tasks, leisure / recreation skills, and prior functional tasks. Perform bed mobility and twisting without pain. Restore pain-free cervical / thoracic / lumbar ROM to WNL to allow for improved ADLs/IADLs Patient will report complete return to prior level of function without limitations Patient Goals: Alleviate pain, improve function. Planned Interventions, Frequency, and Duration: Current Frequency: 1x/week Duration: 4 weeks Total Number of Visits Planned: 4 Planned Treatment Interventions: Therapeutic exercise (95320), Neuromuscular re-education (58112), Manual therapy (76470), Therapeutic activities (72980), Self-assisted management (54082), Patient/Family/Caregiver Education PLAN FOR NEXT VISIT: Progress scapular strength (Thoracic Flexion Row; Rotational Row; Rows; Shld Ext) AND thoracic mobility; DN AND IASTM as needed to L Rhomboids Patient demonstrates good understanding of plan of care and treatment. The above goals and plan of care were discussed and agreed upon by patient/family. SUBJECTIVE: Patient reports lonstanding back pain from sports/lifting and occupational demands; reports a couple months ago worsening mid-back and lower back pain; mid-back/L shoulder blade area feels like a stabbing pain and goes across the mid-back; states it feels like it is underneath the scapula; low back pain comes and goes, feels it almost on his tailbone,sharp/stabbing pain and worsens with prolonged sitting in one position and then limits rising from a chair and initial walking. Patient Goals: Alleviate pain, improve function. Functional Limitations: physical activities (Bed Mobility, Turning/Twisting, Lifting/Carrying, Occasional Rising from chair/initial walking.) Prior Level of Function: Independent without limitations Relevant History Past Relevant Medical Conditions: Per review with patient no issues were identified Employment: Unemployed Intake Information: Prescription present Previous Treatment: NSAIDs , Heat Red Flags Vertebral Fracture Clinical Reasoning: No identified risk factors Abdominal Aortic Aneurysm Clinical Reasoning: No identified risk factors. Cancer Clinical Reasoning: No identified risk factors. Infection Clinical Reasoning: No identified risk factors. Cauda Equina Syndrome Clinical Reasoning: No identified risk factors. Red Flags - Cervical Cancer Clinical Reasoning: No identified risk factors. Infection Clinical Reasoning: No identified risk factors. Pain: Pain Pain Level: 8 Pain Location: Thoracic Spine - Left Description: Stabbing, Sharp Frequency: Continuous Post Treatment Pain Post Treatment Pain Level: Better Post Treatment Pain Location: Thoracic Spine - Left PROMIS Scales Higher is Better 08/30/2023 Phys Func - Score 42 (mild dysfunction) Phys Func - Percentile 21% Self-Eff Symptom - Score 44 (Average) Self-Eff Symptom - Percentile 27% T-scores: mean of general population = 50. 5 points is clinically meaningfully difference Percentiles provide an indication of how the patient's score ranks in relation to the general population. Higher percentile rankings indicate better function/quality of life. 50th perc (more content not included)... [facility] Progress note 09-17-2022 Note Date & Type Note Facility 09-17-2022 Note HNO ID: [id number] Author: Regan Irizarry APRN.FINANCIAL COMPLIANCE OFFICER Service: ? Author Type: Nurse Practitioner Type: Progress Notes Filed: 09/17/2022 11:02 AM Note Text: Subjective HPI HPI Manjit Mckeon is a 42 year old male who presents today for CC of low back pain. This started 4 days ago/sudden onset while picking up tv controller. Has tried otc medication for relief. Symptoms are worsened by rom of back. Risk factors hx of back pain. Reports s/s improving. Cough, congestion, st/loss voice for few days, improving. Needs work note today. .Patient presents with: Pain, Throat: Pt reported throat pain, loss of voice, cough, x4 days, lower back pain 7. No past medical history on file. No past surgical history on file. ALLERGIES Patient has no known allergies. MEDICATIONS ibuprofen (MOTRIN ORAL) Take by mouth. No family history on file. Social History Tobacco Use Smoking status: Never Smokeless tobacco: Never Substance Use Topics Alcohol use: Never Drug use: Never Review of Systems Constitutional: Negative for chills, fever and weight loss. HENT: Positive for congestion and sore throat. Negative for ear pain and nosebleeds. Respiratory: Positive for cough. Negative for shortness of breath and wheezing. Cardiovascular: Negative for leg swelling. Gastrointestinal: Negative for abdominal pain, constipation, diarrhea, nausea and vomiting. Genitourinary: Negative for dysuria, flank pain, frequency, hematuria and urgency. Musculoskeletal: Positive for back pain. Negative for neck pain. Skin: Negative for rash. Neurological: Negative for sensory change and focal weakness. Objective Physical Exam Constitutional: General: He is not in acute distress. Appearance: Normal appearance. He is not toxic-appearing or diaphoretic. HENT: Head: Normocephalic and atraumatic. Mouth/Throat: Lips: [place]. Mouth: Mucous membranes are moist. Tongue: No lesions. Tongue does not deviate from midline. Palate: No mass and lesions. Pharynx: Uvula midline. No pharyngeal swelling, oropharyngeal exudate, posterior oropharyngeal erythema or uvula swelling. Cardiovascular: Rate and Rhythm: Normal rate and regular rhythm. Pulses: Dorsalis pedis pulses are 2+ on the right side and 2+ on the left side. Posterior tibial pulses are 2+ on the right side and 2+ on the left side. Heart sounds: Normal heart sounds, S1 normal and S2 normal. Pulmonary: Effort: Pulmonary effort is normal. Breath sounds: Normal breath sounds. Abdominal: General: Bowel sounds are normal. Palpations: Abdomen is soft. Tenderness: There is no abdominal tenderness. Musculoskeletal: Lumbar back: Spasms present. Decreased range of motion. Comments: Lumbar paraspinal muscles tender with palpation Lymphadenopathy: Cervical: No cervical adenopathy. Right cervical: No superficial cervical adenopathy. Left cervical: No superficial cervical adenopathy. Neurological: Mental Status: He is alert and oriented to person, place, and time. Gait: Gait is intact. Gait normal. Deep Tendon Reflexes: Reflex Scores: Patellar reflexes are 2+ on the right side and 2+ on the left side. Comments: Modified slr normal. ASSESSMENT/PLAN: 1. URI, acute - ICD9: 465.9, ICD10: J06.9 (primary diagnosis) - Discussed viral etiology and rationale for treatment. - Symptomatic treatment with prn analgesia - Supportive care with fluids and rest - Follow up in 3-5 days if symptoms persist or sooner if worsening of symptoms 2. Acute midline low back pain without sciatica - ICD9: 724.2, ICD10: M54.50 Declined steroids Discussed stretching and otc management F/u for continued/worsening s/s. Regan Irizarry APRN.[facility] History of Present illness Narrative 09-17-2022 Regan Irizarry APRN.ANDREA - 09/17/2022 10:59 AM EST Note Date & Type Note Facility 09-17-2022 History of Presen t illness Narrative Subjective HPI HPI Manjit Mckeon is a 42 year old male who presents today for CC of low back pain. This started 4 days ago/sudden onset while picking up tv controller. Has tried otc medication for relief. Symptoms are worsened by rom of back. Risk factors hx of back pain. Reports s/s improving. Cough, congestion, st/loss voice for few days, improving. Needs work note today. .Patient presents with: Pain, Throat: Pt reported throat pain, loss of voice, cough, x4 days, lower back pain 7. No past medical history on file. No past surgical history on file. ALLERGIES Patient has no known allergies. MEDICATIONS ibuprofen (MOTRIN ORAL) Take by mouth. No family history on file. Social History Tobacco Use Smoking status: Never Smokeless tobacco: Never Substance Use Topics Alcohol use: Never Drug use: Never Review of Systems Constitutional: Negative for chills, fever and weight loss. HENT: Positive for congestion and sore throat. Negative for ear pain and nosebleeds. Respiratory: Positive for cough. Negative for shortness of breath and wheezing. Cardiovascular: Negative for leg swelling. Gastrointestinal: Negative for abdominal pain, constipation, diarrhea, nausea and vomiting. Genitourinary: Negative for dysuria, flank pain, frequency, hematuria and urgency. Musculoskeletal: Positive for back pain. Negative for neck pain. Skin: Negative for rash. Neurological: Negative for sensory change and focal weakness. Objective Physical Exam Constitutional: General: He is not in acute distress. Appearance: Normal appearance. He is not toxic-appearing or diaphoretic. HENT: Head: Normocephalic and atraumatic. Mouth/Throat: Lips: [place]. Mouth: Mucous membranes are moist. Tongue: No lesions. Tongue does not deviate from midline. Palate: No mass and lesions. Pharynx: Uvula midline. No pharyngeal swelling, oropharyngeal exudate, posterior oropharyngeal erythema or uvula swelling. Cardiovascular: Rate and Rhythm: Normal rate and regular rhythm. Pulses: Dorsalis pedis pulses are 2+ on the right side and 2+ on the left side. Posterior tibial pulses are 2+ on the right side and 2+ on the left side. Heart sounds: Normal heart sounds, S1 normal and S2 normal. Pulmonary: Effort: Pulmonary effort is normal. Breath sounds: Normal breath sounds. Abdominal: General: Bowel sounds are normal. Palpations: Abdomen is soft. Tenderness: There is no abdominal tenderness. Musculoskeletal: Lumbar back: Spasms present. Decreased range of motion. Comments: Lumbar paraspinal muscles tender with palpation Lymphadenopathy: Cervical: No cervical adenopathy. Right cervical: No superficial cervical adenopathy. Left cervical: No superficial cervical adenopathy. Neurological: Mental Status: He is alert and oriented to person, place, and time. Gait: Gait is intact. Gait normal. Deep Tendon Reflexes: Reflex Scores: Patellar reflexes are 2+ on the right side and 2+ on the left side. Comments: Modified slr normal. ASSESSMENT/PLAN: 1. URI, acute - ICD9: 465.9, ICD10: J06.9 (primary diagnosis) - Discussed viral etiology and rationale for treatment. - Symptomatic treatment with prn analgesia - Supportive care with fluids and rest - Follow up in 3-5 days if symptoms persist or sooner if worsening of symptoms 2. Acute midline low back pain without sciatica - ICD9: 724.2, ICD10: M54.50 Declined steroids Discussed stretching and otc management F/u for continued/worsening s/s. Regan Irizarry APRN.ANDREA documented in this encounter [facility] Instructions 09-17-2022 Patient Instructions Note Date & Type Note Facility 09-17-2022 Instructions Regan Irizarry APRN.ANDREA - 09/17/2022 10:57 AM EST EMERGENCY DEPARTMENT LOW BACK PAIN GENERAL INFORMATION: Low back pain is located in the small of the back. The pain may be related to sprained muscles or ligaments, to muscle spasms, or to herniation of a spinal disc. There are many possible causes of back pain, but the most common causes are gradual wear and tear, physical and emotional stress, and weak or tense muscles from lack of proper exercise. The pain can develop quickly or overnight and may be caused by unusual exertion such as moving furniture or heavy lifting. Low back pain can be severe, and sometimes you may be unable to move without pain. INSTRUCTIONS: 1. During the first 24 hours, apply ice packs to your back for 10-20 minutes 3 to 4 times a day. Put the ice in a plastic bag and place a towel between the bag of ice and your skin. After 24 hours, apply heat to your back with a heating pad set on low or a warm water bottle for 30 minutes every 3 to 4 hours. A gentle massage and warm showers may also be helpful. 2. Stay in bed for 1 to 2 days. Then begin normal activities as you can tolerate without causing pain. 3. Bend at the hips and knees; never bend from the waist only. Lift with your legs, not your back. 4. Sleep on a firm mattress or put a to 1 inch piece of plywood between the mattress and box springs. Do not use a waterbed because it does not support your back correctly. Sleep with a pillow under your knees or sleep on your side with your knees bent. 5. Wear low-heeled shoes. 6. If you are overweight, losing weight will help prevent another attack. 7. Begin a program of back exercises to prevent future episodes of pain. Walking, swimming, and bicycling are good exercise. Avoid exercises that put stress on the back, such as rowing and jogging. CONTACT YOUR DOCTOR OR RETURN TO THE ED IF: 1. You have shooting pains into your buttocks, groin, or legs. 2. You have difficulty urinating or lose control of bowel or bladder function. 3. You have numbness or weakness in your legs or feet. documented in this encounter [facility] Evaluation note Note Date & Type Note Facility documented in this encounter [facility] Summary Purpose Family History No Family History Records Found Advance Directives No Advanced Directives Records Found Additional Source Comments Source Comments (unrecognize d section and content) In the event this informatio n is protected by the Federal Confidentiality of Alcohol and Drug Abuse Patient Records regulations: The Federal rules restrict any use of the information to criminally investigate or prosecute any alcohol or drug abuse patient.[facility] Reason for Visit (unrecogniz ed section and content) Care Teams (unrecognized sec tion and content) (unrecognized sect ion and content) No Status Records Found INFORMATION SOURCE (unrecogn ized section and content) FOR RECORDS PERTAINING TO PATIENTS WHO ARE OR HAVE BEEN ENROLLED IN A CHEMICAL DEPENDENCY/SUBSTANCEABUSE PROGRAM, SOME INFORMATION MAY BE OMITTED. This clinical summary was aggregated from multiple sources. Caution should be exercised in using it in the provision of clinical care. This summary normalizes information from multiple sources, and as a consequence, information in this document may materially change the coding, format and clinical context of patient data. In addition, data may be omitted in some cases. CLINICAL DECISIONS SHOULD BE BASED ON THE PRIMARY CLINICAL RECORDS. [employer] provides no warranty or guarantee of the accuracy or completeness of information in this document.
[2023-09-18 17:49] LABS: Absolute Lymphocyte Count 2.41 X10^3/uL (0.83-4.51); Basophil% 2.5 % (0-1); Eosinophil# 0.42 X10^3/uL; Eosinophils% 5.2 % (0-5); Hematocrit 43.6 % (40-54); Hemoglobin 14.9 g/dL (13.0-16.5); Lymphocyte # 2.41 X10^3/ul (0.83-4.51); Lymphocyte % 29.6 % (19-41); Mean Corp Hgb Conc 34.2 g/dL (32-36); Mean Corpuscular Hgb 31.4 pg (27.0-32.0); Monocyte# 1.11 X10^3/uL; Monocyte% 13.6 % (0-10); NRBC Flagged by Analyzer 0 % (0-5); Neutrophil # 3.99 X10^3/uL (2.7-7.7); Neutrophil % 48.9 % (47-70); Platelet Count 233 K/mm3 (150-450); RBC Distribution Width SD 40.6 fl (35.1-43.9); Red Blood Count 4.74 M/mm3 (4.6-6.2); White Blood Count 8.2 K/mm3 (4.4-11.0)
[2023-09-28 09:07] LABS: Testosterone, % Free 1.47 % (1.50-4.20); Testosterone, Total 592 ng/dL (264-916)
== END | disposition home or self-care (01) ==
LOC: MFPLAB 16:11
PROVIDERS: PCP Family Medicine; Visit Provider Family Medicine
DX: E29.1 Testicular hypofunction (principal)
CPT/HCPCS: 36415; 84402; 84403; 85025